=== PATIENT | male | born 1960 | race Caucasian/White ===

== ENCOUNTER 2021-04-05 12:31 | Emergency (ER) | payer OTHER ==
[2021-04-05] MEDS ORDERED: HYDROcodone/Acetaminophen 5/325 mg Tablet ONE (13:52)
[2021-04-05] MEDS ORDERED: Boostrix 0.5 ML (Tdap) VIAL ONE (14:06)
== END 2021-04-05 17:35 | disposition home or self-care (01) ==
LOC: NAV ERS 12:31
DX: T63.001A Toxic effect of unspecified snake venom, accidental (unintentional), initial encounter (principal); F17.220 Nicotine dependence, chewing tobacco, uncomplicated
CPT/HCPCS: 90471; 90715